=== PATIENT | male | born 2000 ===

== ENCOUNTER 2020-04-29 09:29 | Emergency (ER) | payer OTHER ==
[2020-04-29 09:37] VITALS: BP 111/64
--- NOTE | 2020-04-29 10:52 | Emergency Department Report ---
ED General Adult HPI - General Chief complaint: Upper Respiratory Infection Stated complaint: FEVER/BODY ACHES/NOT EATING Time Seen by Provider: 04/29/20 10:25 Source: patient Mode of arrival: Wheelchair Limitations: No Limitations - History of Present Illness Initial comments: 19-year-old male patient presents with complaints of body aches, fatigue, ch ills, and throat pain x3 days. He reports swelling to the right side of his neck that he noticed today. His mother states he had a fever of 103 that improved with ibuprofen and Tylenol. He denies any cough, shortness of breath, chest pain, nausea/vomiting/diarrhea, abdominal pain, urinary symptoms, or skin changes. Patient states he did have a headache that has now improved with ibuprofen and Tylenol. He also denies any difficulty moving his neck or stiffness in his neck. Patient rates his current pain as a 3/10 in severity. 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 - Related Data Previous Rx's Medication Instructions Recorded Last Taken Type Amoxicillin/Potassium Clav 1 each PO BID 10 Days #20 tablet 04/29/20 Unknown Rx [Augmentin 875-125 Tablet] Ibuprofen [Motrin 800 MG tab] 800 mg PO Q8HR PRN #21 tablet 04/29/20 Unknown Rx predniSONE [Deltasone] 20 mg PO BID 3 Days #6 tab 04/29/20 Unknown Rx Allergies Allergy/AdvReac Type Severity Reaction Status Date / Time No Known Allergies Allergy Unverified 04/29/20 09:37 ED Review of Systems ROS: Stated complaint: FEVER/BODY ACHES/NOT EATING Other details as noted in HPI Constitutional: chills, fever, malaise, weakness. denies: diaphoresis Eyes: denies: eye pain, vision change ENT: throat pain. denies: ear pain Respiratory: denies: cough, shortness of breath Cardiovascular: denies: chest pain Endocrine: denies: excessive sweating Gastrointestinal: denies: abdominal pain, nausea, vomiting, diarrhea Genitourinary: denies: urgency, dysuria, frequency Musculoskeletal: denies: back pain Skin: denies: rash, lesions, change in color Neurological: as per HPI. denies: weakness, numbness, paresthesias, confusion, abnormal gait Hematological/Lymphatic: swollen glands ED Past Medical Hx - Past Medical History Previous Medical History?: No - Surgical History Past Surgical History?: No - Social History Smoking Status: Never Smoker Substance Use Type: None - Medications Home Medications: Home Medications Medication Instructions Recorded Confirmed Last Taken Type Amoxicillin/Potassium Clav 1 each PO BID 10 Days #20 tablet 04/29/20 Unknown Rx [Augmentin 875-125 Tablet] Ibuprofen [Motrin 800 MG tab] 800 mg PO Q8HR PRN #21 tablet 04/29/20 Unknown Rx predniSONE [Deltasone] 20 mg PO BID 3 Days #6 tab 04/29/20 Unknown Rx ED Physical Exam - General Limitations: No Limitations General appearance: alert, in no apparent distress - Head Head exam: Present: atraumatic, normocephalic - Eye Eye exam: Present: normal appearance. Absent: scleral icterus - ENT ENT exam: Present: mucous membranes moist - Expanded ENT Exam Expanded Mouth exam: Absent: drooling, trismus, muffled voice Throat exam: Positive: tonsillar erythema, tonsillomegaly, tonsillar exudate - Neck Neck exam: Present: full ROM, lymphadenopathy (tender, singular moderately sized right anterior cervical; no spinal tenderness noted ). Absent: meningismus (Negative Brudzinski's and Kernig's sign) - Respiratory Respiratory exam: Present: normal lung sounds bilaterally. Absent: respiratory distress - Cardiovascular Cardiovascular Exam: Present: regular rate, normal rhythm - GI/Abdominal GI/Abdominal exam: Present: soft. Absent: tenderness - Extremities Exam Extremities exam: Present: full ROM - Back Exam Back exam: Present: normal inspection - Neurological Exam Neurological exam: Present: alert, oriented X3 - Psychiatric Psychiatric exam: Present: normal affect, normal mood - Skin Skin exam: Present: warm, dry, intact, normal color. Absent: rash, cyanosis, diaphoretic, erythema, ecchymosis ED Course Vital Signs 04/29/20 09:35 Temperature 98.5 F Pulse Rate 90 Respiratory 16 Rate Blood Pressure 111/64 O2 Sat by Pulse 98 Oximetry ED Medical Decision Making - Medical Decision Making 19-year-old male patient presents with complaints of body aches, fatigue, chills, and throat pain x3 days. He reports swelling to the right side of his neck that he noticed today. His mother states he had a fever of 103 that improved with ibuprofen and Tylenol. He denies any cough, shortness of breath, chest pain, nausea/vomiting/diarrhea, abdominal pain, urinary symptoms, or skin changes. Patient states he did have a headache that has now improved with ibuprofen and Tylenol. He also denies any difficulty moving his neck or stiffness in his neck. Patient rates his current pain as a 3/10 in severity. 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 Marshall and rapid strep negative, however given pt's hx of recurrent strep will treat for strep pharyngitis while throat culture pending. PT's mother states augmentin works well for him. Prednisone given for lymphadenopathy. Recommend f/u with PCP in 3 days. Discussed in great detail signs and symptosm that should prompt immediate return to the ED in detail with pt and patient's mother who both state understanding. He is well appearing, his vitals are normal, and he is stable for d/c home. Critical care attestation.: If time is entered above; I have spent that time in minutes in the direct care of this critically ill patient, excluding procedure time. ED Disposition Clinical Impression: Acute bacterial pharyngitis Disposition: - TO HOME OR SELFCARE Is pt being admited?: No Condition: Stable Instructions: Pharyngitis Prescriptions: Amoxicillin/Potassium Clav [Augmentin 875-125 Tablet] 1 each PO BID 10 Days #20 tablet predniSONE [Deltasone] 20 mg PO BID 3 Days #6 tab Ibuprofen [Motrin 800 MG tab] 800 mg PO Q8HR PRN #21 tablet PRN Reason: pain/fever Referrals: PRIMARY CARE, [Primary Care Provider] - 3-5 Days
== END 2020-04-29 12:45 | disposition home or self-care (01) ==
LOC: ED 09:29
DX: J02.8 Acute pharyngitis due to other specified organisms (principal); B97.89 Other viral agents as the cause of diseases classified elsewhere; Z79.2 Long term (current) use of antibiotics; Z79.899 Other long term (current) drug therapy
CPT/HCPCS: 36415; 86308; 87116; 87430; 99283